=== PATIENT | male | born 1990 | race African-American/Black ===

== ENCOUNTER 2023-04-15 22:13 | Emergency (ER) | payer BC, OTHER ==
[~2023-04-15] VITALS: Ht 185.4 cm; Wt 97.7 kg
[2023-04-15 23:40] VITALS: BP 130/78; PULSE 74; RESP 16; O2SAT 97
[2023-04-16] MEDS ORDERED: GENT0.3S10 EACHEYE (01:19)
[2023-04-16] MEDS ORDERED: CEPH500C PO (01:19)
== END 2023-04-16 04:50 | disposition home or self-care (01) ==
LOC: ER 22:13
DX: H00.012 Hordeolum externum right lower eyelid (principal); H01.001 Unspecified blepharitis right upper eyelid